=== PATIENT | male | born 1955 | race Asian ===

== ENCOUNTER 2018-11-23 08:17 | Outpatient (CLI) | payer MEDICARE, OTHER | END 2018-11-23 23:59 | disposition home or self-care (01) | LOC: CFH 08:17 | PROVIDERS: ATTEND Internal Medicine Cardiovascular Disease | DX: I35.8 Other nonrheumatic aortic valve disorders (principal); I10 Essential (primary) hypertension; E78.5 Hyperlipidemia, unspecified | CPT/HCPCS: 93306 ==